=== PATIENT | male | born 1995 | race Caucasian/White ===

== ENCOUNTER → 2022-09-11 | Day surgery (SDC) | payer OTHER, MEDICAID ==
[~2022-09-11] MED LIST: Dexamethasone 4 MG/ML SDV ONE; Glycopyrrolate 0.2 MG/ML SDV ONE; Lidocaine 2% 20 ML MDV ONE; Midazolam 1 MG/ML 2 ML SDV ONE; Naloxone 2 MG/2 ML Syringe ONE; Neostigmine Methylsulfate 10 MG/10 ML MDV ONE; Ondansetron 4 MG/2 ML SDV ONE; Propofol 200 MG/20 ML SDV ONE; Rocuronium 50 MG/5 ML Vial ONE; fentaNYL 50 MCG/ML SDV ONE
[2022-09-11] MEDS: Lactated Ringers 1,000 ML IV SCH (11:15)
== END ==
LOC: MERGE 10:57 → CC.SDS 10:57
PROVIDERS: ATTEND Dentist General Practice
DX: Z01.818 Encounter for other preprocedural examination (principal); G40.909 Epilepsy, unspecified, not intractable, without status epilepticus; Z79.899 Other long term (current) drug therapy; Z91.048 Other nonmedicinal substance allergy status
CPT/HCPCS: 00170; 41899; J7120; J1100; J2250; J2310; J2405; J2704; J2710; J3010; J3490

== ENCOUNTER 2024-01-13 08:03 | Day surgery (SDC) | payer OTHER, MEDICAID, MEDICARE ==
[2024-01-13] MEDS: Lactated Ringers 1,000 ML IV SCH (08:22)
[2024-01-13] MEDS ORDERED: Rocuronium 50 MG/5 ML Vial ONE (09:00)
[2024-01-13] MEDS ORDERED: Midazolam 1 MG/ML 2 ML SDV ONE (09:00)
[2024-01-13] MEDS ORDERED: Neostigmine Methylsulfate 10 MG/10 ML MDV ONE (09:00)
[2024-01-13] MEDS ORDERED: fentaNYL 50 MCG/ML SDV ONE ×2 (09:00)
[2024-01-13] MEDS ORDERED: Lidocaine 2% 20 ML MDV ONE (09:00)
[2024-01-13] MEDS ORDERED: Ondansetron 4 MG/2 ML SDV ONE (09:00)
[2024-01-13] MEDS ORDERED: Glycopyrrolate 0.2 MG/ML SDV ONE ×2 (09:00)
[2024-01-13] MEDS ORDERED: Propofol 200 MG/20 ML SDV ONE (09:00)
== END 2024-01-13 11:45 | disposition home or self-care (01) ==
LOC: CC.SDS 08:03
PROVIDERS: ATTEND Dentist General Practice
DX: K02.9 Dental caries, unspecified (principal); D69.6 Thrombocytopenia, unspecified
CPT/HCPCS: 00170; J2250; J2405; J2704; J2710; J3010; J3490; J7120

== ENCOUNTER 2025-02-02 06:37 | Day surgery (SDC) | payer MEDICARE, MEDICAID ==
[2025-02-02] MEDS: Lactated Ringers 1,000 ML IV SCH (10:04)
[2025-02-02] MEDS ORDERED: Ondansetron 4 MG/2 ML SDV ONE (10:40)
[2025-02-02] MEDS ORDERED: Succinylcholine 200 MG/10 ML MDV ONE (10:40)
[2025-02-02] MEDS ORDERED: Lidocaine 2% HCl 6 ML Jel ONE (10:40)
[2025-02-02] MEDS ORDERED: fentaNYL 50 MCG/ML SDV ONE (10:40)
[2025-02-02] MEDS ORDERED: Dexamethasone 4 MG/ML SDV ONE (10:40)
[2025-02-02] MEDS ORDERED: Midazolam 1 MG/ML 2 ML SDV ONE (10:40)
[2025-02-02] MEDS ORDERED: Propofol 200 MG/20 ML SDV ONE (10:40)
== END 2025-02-02 13:10 | disposition home or self-care (01) ==
LOC: CC.SDS 06:37
PROVIDERS: ATTEND Dentist General Practice
DX: K02.9 Dental caries, unspecified (principal); H66.90 Otitis media, unspecified, unspecified ear; Z79.899 Other long term (current) drug therapy
CPT/HCPCS: A9270-GY; J0330; J1100; J1596; J2250; J2405; J2704; J3010; J7120